=== PATIENT | female | born 1990 | race Caucasian/White ===

== ENCOUNTER 2022-04-15 16:15 | Outpatient (RCR) | payer MEDICAID, SELFPAY ==
--- NOTE | 2022-03-21 17:17 | OT.OPOE ---
OT Outpatient Ortho Eval OT Outpatient Ortho Eval Start: 03/20/22 15:20 Freq: Status: Active Protocol: Document 03/21/22 16:26 AMB (Rec: 03/21/22 16:35 AMB [id number]) E-Signed By Nu Martinez, OTR/L, CLT, MANAGER SEARCH OT OP Ortho Eval Details Type Type Eval Complexity Low Outpatient History/Precautions Current Condition/Medical Diagnosis Treatment Diagnosis Pain, weakness and limited ROM of the LUE wrist secondary to cyst removal Date of Onset 12/31/21 Medical Contraindications None Other Contraindications ADHD, anxiety, allergic to surgical flue and bactrim Medical/Functional History Medical History Reviewed Yes Prior Level of Function/Mobility Full, pain-free use of LUE Social History Current Occupation [employer] Demands Pull,Lift Hobbies Fitness Fitness Exercises regularly Oriented Mental Status No Concerns Ortho Subjective Subjective Subjective Pt states she had surgery on to remove ganglion cyst from her right wrist. Surgery went well but she has had trouble with ROM and WB due to pain and stiffness. Pt is ambidextrious and usually uses her LUE for lifting and heavier work activities, this has been limited. Pt states initially she could not do push-ups or burpies and had great difficulty lifting her children. Pt states her sxs have actually been improving over the past several days, wasn't sure if she should keep this appointment. Pain Assessment Pain Present Pain Present Pain Reported Location Left Wrist Description Tightness,Tender,Pinching Intensity 2 OT Objective Data Additional Information Objective Additional Information 03/21/22 AROM of the LUE wrist flexion is 75, ext is 75, UD is 30, RD is 35. Rotary Shear Cutter on RUE is 55#, LUE is 50#. 3pt pinch on the RUE is 17#, LUE is 12#, lateral pinch on the RUE is 16#, LUE is 13#. Pt has pain at EROM of wrist flex and extension and mild discomfort with spinning mule tender strength testing. OT Problems Problems Problems Decreased Strength,Decreased Range of Motion,Gripping Other Problems Opening Containers Patient Potential Excellent Assessment Assessment Assessment Pt presents to OT with pain, mild weakness and limited ROM in the LUE which limits her ability to lift, exercise and play with her children. Pt will benefit from skilled OT intervention to address impairments and restore full, pain-free use of her LUE. Ortho Goals Ortho Goals Goals 1. Pt will be independent and compliant with HEP in order to resume full, pain-free use of the involved UE. 3 weeks 2. Pt will demonstrate full, pain-free AROM of the involved UE in order to improve ability to grasp and hold. 6 weeks 3. Pt will demonstrate pain- free spinning mule tender and pinch strength comparable to the uninvolved side in order to improve functional grasp, hold, reach, and lifting ability needed to complete self-care, leisure tasks, and work activities. 8 weeks. OT Outpatient Treatment Plan Ortho Plan Expected Frequency 1x Week Expected Duration 4-6 Weeks Treatment Plan Evaluation,Joint Mobilization, Manual Therapy,Ultrasound, Therapeutic Exercise, Therapeutic Activities Certification Certification I Certify That: Therapy Services Provided, Therapy Plan Established, Therapy Plan Reviewed
== END 2022-05-16 12:33 | disposition home or self-care (01) ==
PROVIDERS: PCP Family Medicine; Visit Provider Orthopaedic Surgery
DX: R53.1 Weakness (principal); Z51.89 Encounter for other specified aftercare
CPT/HCPCS: 97035; 97110; 97140; 97165; X5282